=== PATIENT | female | born 2000 | race Caucasian/White ===

== ENCOUNTER 2024-09-20 22:32 | Emergency (ER) | payer OTHER | END 2024-09-20 23:31 | disposition home or self-care (01) | LOC: ERS 22:32 | DX: S80.212A Abrasion, left knee, initial encounter (principal); S60.512A Abrasion of left hand, initial encounter; S60.511A Abrasion of right hand, initial encounter; W01.0XXA Fall on same level from slipping, tripping and stumbling without subsequent striking against object, initial encounter; Y93.02 Activity, running | CPT/HCPCS: 99284 ==